=== PATIENT | female | born 1965 | race Caucasian/White ===

== ENCOUNTER 2016-03-30 06:14 | Outpatient (CLI) ==
[2015-11-01 19:09] VITALS: BMI 24.6
--- NOTE | 2016-03-30 10:02 | STRESSECHO ---
Date of Test: 03/30/16 Reason for Exam: SOB, TACHYCARDIA Ordering Physician: LUCILLE LEONE Current Medications: LAMICTAL, XANAX, PROTONIX, CARVEDILOL, WELLBUTRIN, AMBIEN, NALTREXONE Physical Findings: S1, S2, NO S3 Resting EKG: SINUS RHYTHM/ NO ACUTE CHANGES Target Heart Rate: 145/171 STAGE MPH/GRADE HEART RATE BPM BLOOD PRESSURE mmhg RHYTHM S-T SEGMENT +/- UP DOWN SYMPTOMS,COMMENTS At Rest 75 112/60 SR X NONE 1 1.7/10% 122 130/62 SR X NONE 2 2.5/12% 3 3.4/14% 4 4.2/16% 5 5.0/18% Immediately after 140 130/60 SR X SHORT OF BREATH Durations of Exercise: 4:44 Maximum Heart Rate Reached: 140 Reason for Termination: SHORT OF BREATH 3 MIN POST EXERCISE: HR-84, BP 116/58 MMHG, SINUS RHYTHM, +/-, NO SYMPTOMS INTERPRETATION: 98% OXYGEN SATURATION WITH EXERCISE ON ROOM AIR 1. NO EVIDENCE OF ISCHEMIA BY ST-T WAVE 2. NO CHEST PAIN OR CHEST DISCOMFORT 3. BLOOD PRESSURE RESPONSE: NORMAL 4. NO ARRHYTHMIAS NORMAL LEFT VENTRICULAR CONTRACTILITY--RESTING AND POST EXERCISE MTDD
--- NOTE | 2016-03-30 10:19 | ECHOSTRESS ---
Date of Exam: 03/30/16 Ordering Physician:LUCILLE LEONE Reason for Echo: SOB, TACHYCARDIA, STRESS TEST--NO ISCHEMIA M-Mode Normal Adult Results LV Dimensions Normal Adult Results AoV Opening excursions >1.6 LVEDD-base- 3.5-5.8 Ao root dimensions 2.0-3.7 LVESD-base- 3.1-4.6 L. Atrium dimensions 1.9-3.8 Post. Wall thickness 0.8-1.1 IV septum (thickness) 0.7-1.2 Post. Wall excursion 0.72-1.3 Septal motion Systolic motion R. Ventricular cavity 1.5-2.0 LVEF 60% Paradoxical septal wall motion 2-D: NORMAL LEFT VENTRICULAR CONTRACTILITY--RESTING AND POST EXERCISE M-MODE: MV: AV: TV: PV: CHAMBER SIZE: WALL MOTION: NORMAL LEFT VENTRICULAR CONTRACTILITY--RESTING AND POST EXERCISE PERICARDIUM: INTERPRETATION: 1. NORMAL LEFT VENTRICULAR CONTRACTILITY--RESTING AND POST EXERCISE MTDD
== END 2016-03-30 06:15 | disposition home or self-care (01) ==
LOC: CAR 06:14
PROVIDERS: ATTEND Family Medicine
DX: R00.0 Tachycardia, unspecified (principal); R06.02 Shortness of breath

== ENCOUNTER 2016-08-28 16:28 | Emergency (ER) ==
[2016-08-28 16:32] VITALS: BP 00/00; TEMP 98.4; BMI 26.2
[2016-08-28 17:07] LABS: BASOPHILS # (AUTO) 0.1 K/uL (0-0.2); EOSINOPHILS # (AUTO) 0.2 K/ul (0.0-0.7); HEMATOCRIT 37.7 % (37.0-47.0); HEMOGLOBIN 12.9 g/dl (12.0-16.0); IMMATURE GRANULOCYTE % (AUTO) 0.2 % (0.0-5.0); LYMPHOCYTES # (AUTO) 2.3 K/uL (0.60-3.4); LYMPHOCYTES % (AUTO) 47.6 (10.0-50.0); MEAN CORPUSCULAR HEMOGLOBIN 29.9 pg (27.0-31.0); MEAN CORPUSCULAR HGB CONC 34.2 (31.8-35.4); MEAN CORPUSCULAR VOLUME 87.3 fl (81.0-99.0); MONOCYTES # (AUTO) 0.3 K/uL (0.4-2.0); MONOCYTES % (AUTO) 6.7 (0-10); NEUTROPHILS % (AUTO) 40.5; PLATELET COUNT 283 10^3/uL (140-440); RED BLOOD COUNT 4.32 10^6/ul (4.20-5.40); WHITE BLOOD COUNT 4.81 K/ul (4.6-10.2)
[2016-08-28 17:24] LABS: ALBUMIN 3.8 g/dL (3.4-5.0); ALBUMIN/GLOBULIN RATIO 1.12; ANION GAP 14.8; BILIRUBIN,TOTAL 0.33 mg/dL (0.00-1.20); BUN/CREATININE RATIO 17.5; CALCIUM 9.3 mg/dL (8.2-10.2); CREATININE 0.8 mg/dL (0.60-1.30); POTASSIUM 3.8 mmol/L (3.5-5.10); TOTAL PROTEIN 7.2 g/dL (6.4-8.2)
--- NOTE | 2016-08-28 17:30 | CT ---
EXAM: CT chest without contrast HISTORY: Productive cough COMPARISON: CT abdomen pelvis 04/20/2012 TECHNIQUE: CT chest performed without intravenous contrast. Coronal and sagittal reformatted image s obtained. FINDINGS: Thyroid and thoracic inlet appear normal. Heart normal in size. No pericardial effusion . Aorta normal in caliber. Evaluation for lymphadenopathy limited without contrast. No lymphadeno kenn identified. Esophagus unremarkable. There is redemonstration of a left renal mass measuring 6.0 x 5.1 cm and 16 HU, mildly increased in size from 2013. No acute abnormalities of the bones. C entral airway patent. No pneumothorax. Trace left pleural effusion. Trace bilateral pleural effus ions. Mild lower airway thickening. No focal airspace consolidation. Minimal subsegmental atelect asis in the right middle lobe. IMPRESSION: 1. Mild lower airway thickening suggesting mild infectious/inflammatory bronchiolitis. No airspace consolidation. Mild subsegmental atelectasis right middle lobe 2. Trace bilateral pleural effusions. 3. Left adrenal mass measuring 6.0 cm, mildly increased from 2013, appearing cystic on MRI 11/10/19 11
[2016-08-28] MEDS ORDERED: DUONEB NEB STA (17:33)
[2016-08-28] MEDS ORDERED: DECADRON 4 MG/ML SDV IM STA (17:35)
[2016-08-28] MEDS ORDERED: DECADRON 4 MG/ML SDV ONE (17:38)
--- NOTE | 2016-08-28 17:47 | CT ---
EXAM: CT of the sinuses without contrast. HISTORY: Sinus congestion and pain. PROCEDURE: Contiguous axial CT images of the paranasal sinuses without contrast with coronal and sa gittal reformats. FINDINGS: There are bilateral antrectomy defects. There is a 1.4 cm mucous retention cyst in the ri ght maxillary sinus. There is trace mucosal thickening in the bilateral maxillary sinuses. The fron micky sinuses, ethmoid air cells and sphenoid sinus are well-aerated and normal in appearance. There is marked deviation of the nasal septum to the left. The lens in the left orbit is not visualized wh ich is stable compared with CT of 11/01/2015. Impression: Bilateral maxillary sinusitis as described. Operative changes as described.
--- NOTE | 2016-08-28 18:12 | ED.PDOC ---
General ED Provider: Dr. VANGIE KEARNS-ER Chief Complaint: Cough Stated Complaint: Mariah coughing up stuff Time Seen by Physician: 18:10 Mode of Arrival: Walk-In Information Source: Patient Exam Limitations: No limitations Primary Care Provider: LUCILLE KRISHNAN Nursing and Triage Documentation Reviewed and Agree: Yes Respiratory Complaint Exam - Respiratory Complaint/Exam Onset/Duration: 5 days Symptoms Are: Still present Timing: Intermittent Initial Severity: Mild Current Severity: Mild Location: Chest Character: Reports: Productive cough Aggravating: Reports: URI Alleviating: Reports: None Associated Signs and Symptoms: Reports: URI. Denies: Rapid breathing, Dyspnea, Fever, Chills, Chest pain, Pleuritic chest pain, Wheezing, Hemoptysis, Dizziness , Calf pain, Calf swelling, Edema, Nasal congestion, Hoarseness, Sinus discomfort, Vomiting, Sore throat, Weight loss, Decreased oral intake, Increased thirst, Increased appetite, Increased urination Related History: Reports: Similar episode History of Healthcare-Acquired Pneumonia: No Related Surgical History: Reports: None Pulmonary Embolism Risk Factors: None Home Oxygen Use: No Recent Stress Test: No Recent Echo/LV Function: No Current Antibiotic Use: No Current Asthma Medication Use: No Respiratory Distress: None Inadequate Respiratory Effort: No Dysphagia Present: No Stridor Present: No JVD Present: No Accessory Muscle Use: No Retractions: Not Present Diminished Breath Sounds: No Sinus Tenderness: None Grunting Respirations: No Kussmaul Respirations: No Differential Diagnoses: Pneumonia, Bronchitis, Sinusitis Review of Systems - Review Of Systems Constitutional: Reports: No symptoms Eyes: Reports: No symptoms Ears, Nose, Mouth, Throat: Reports: No symptoms Respiratory: Reports: Cough, Wheezing Cardiac: Reports: No symptoms GI: Reports: No symptoms : Reports: No symptoms Musculoskeletal: Reports: No symptoms Skin: Reports: No symptoms Neurological: Reports: No symptoms Endocrine: Reports: Intolerance to heat Hematologic/Lymphatic: Reports: No symptoms All Other Systems: Reviewed and Negative Past Medical History - Past Medical History Previously Healthy: Yes Endocrine: Reports: None Cardiovascular: Reports: None Respiratory: Reports: None Hematological: Reports: None Gastrointestinal: Reports: None Genitourinary: Reports: None Neuro/Psych: Reports: Other (insomina ) Musculoskeletal: Reports: Other (fibromyalgia) Cancer: Reports: None Last Menstrual Period: none - Surgical History General Surgical History: Reports: Hysterectomy, Cholecystectomy, Other ( CATARACT SURGERY.) - Family History Family History: Reports: None - Social History Smoking Status: Never smoker Hx Substance Use: No Alcohol Screening: None Lives: With family Physical Exam - Physical Exam Appearance: Well-appearing, No pain distress, Well-nourished Eyes: GASTON, EOMI, Conjunctiva clear ENT: Ears normal, Nose normal, Oropharynx normal Neck: Supple Respiratory: Rhonchi Cardiovascular: RRR GI/: Soft, Nontender, No masses, Bowel sounds normal, No Organomegaly Musculoskeletal: Normal strength, ROM intact, No edema, No calf tenderness Skin: Warm, Dry, Normal color Neurological: Sensation intact, Motor intact, Reflexes intact, Cranial nerves intact, Alert, Oriented Psychiatric: Affect appropriate, Mood appropriate Interpretation - Radiology Interpretation Radiology Interpretation By: Radiologist Radiology Results: Positive Exam Interpreted: CT Scan Re-Evaluation - Re-Evaluation Time of Re-Evaluation: 18:13 Status: Improved Vital Signs Stable: Yes Pain Level: 0 Appearance: NAD Lungs: Clear Skin: Warm and Dry Neuro: Alert and Oriented X3 CV: RRR Critical Care Note - Critical Care Note Total Time (mins): 0 Course - Course Hematology/Chemistry: 08/28/16 16:55 08/28/16 16:55 Orders, Labs, Meds: Lab Review 08/28/16 16:55 WBC 4.81 RBC 4.32 Hgb 12.9 Hct 37.7 MCV 87.3 MCH 29.9 MCHC 34.2 RDW Coeff of Lianne 13.9 Plt Count 283 Immature Gran % (Auto) 0.2 Neut % (Auto) 40.5 Lymph % (Auto) 47.6 Beadle % (Auto) 6.7 Eos % (Auto) 4.0 Baso % (Auto) 1.0 Immature Gran # (Auto) 0.0 Neut # 2.0 Lymph # 2.3 Beadle # 0.3 L Eos # 0.2 Baso # 0.1 Sodium 141 Potassium 3.8 Chloride 106 Carbon Dioxide 24 Anion Gap 14.8 BUN 14 Creatinine 0.80 Estimated GFR (MDRD) 76.00 BUN/Creatinine Ratio 17.50 Glucose 98 Calcium 9.3 Total Bilirubin 0.33 AST 61 H ALT 78 Alkaline Phosphatase 110 H Total Protein 7.2 Albumin 3.8 Globulin 3.4 Albumin/Globulin Ratio 1.12 Orders Category Date Time Status NEBULIZER TREATMENT Stat CARDIO 08/28/16 17:33 Completed BLOOD CULTURE Stat LAB 08/28/16 16:55 Received CBC W/ AUTO DIFF Stat LAB 08/28/16 16:55 Completed COMPREHENSIVE METABOLIC PANEL Stat LAB 08/28/16 16:55 Completed MOLECULAR GROUP A STREP Stat LAB 08/28/16 16:40 Results STREP SCREEN Stat LAB 08/28/16 16:40 Results Dexamethasone 4 mg/ml Inj [Decadron 4 mg/ml Sdv] MEDS 08/28/16 17:38 Discontinued 4 mg .ROUTE .STK-MED ONE Dexamethasone 4 mg/ml Inj [Decadron 4 mg/ml Sdv] MEDS 08/28/16 17:35 Discontinued 4 mg IM ONCE STA Ipratropium/Albuterol Neb [Duoneb] MEDS 08/28/16 17:33 Discontinued 1 vial NEB ONCE STA CT CHEST W/O CONTRAST Stat RADS 08/28/16 16:[address] SINUSES W/O CONTRAST Stat RADS 08/28/16 16:39 Completed Medications Discontinued Medications Generic Name Dose Route Start Last Admin Trade Name Iliana PRN Reason Stop Dose Admin Albuterol/Ipratropium 1 vial 08/28/16 17:33 08/28/16 17:43 Duoneb NEB 08/28/16 17:34 1 vial ONCE STA Administration Dexamethasone Sodium Phosphate 4 mg 08/28/16 17:35 08/28/16 17:41 Decadron 4 Mg/Ml Sdv IM 08/28/16 17:36 4 mg ONCE STA Administration Vital Signs: Temp Pulse Resp BP Pulse Ox 08/28/16 16:28 98.4 F 94 H 18 00/00 L 96 Departure - Departure Time of Disposition: 18:13 Disposition: HOME SELF-CARE Discharge Problem: Bronchitis, Mass of left adrenal gland Instructions: Acute Bronchitis (ED) Condition: Good Pt referred to PMD for follow-up: Yes Additional Instructions: continue antbx--start prednisone 20mg taper tomorrow---use the albuterol inhaler 2 puffs qid you hve a home--f/i with dr krishnan this week concerning the adrenal mass Allergies/Adverse Reactions: Allergies Sulfa (Sulfonamide Antibiotics) Adverse Reaction (Verified 08/28/16 16:33) Home Medications: Ambulatory Orders Lamotrigine [Lamictal] 200 mg PO DAILY 05/31/15 Pantoprazole Sodium [Protonix] 40 mg PO DAILY 05/31/15 Trazodone HCl 150 mg PO BEDTIME 11/01/15 Alprazolam [Alprazolam ER] 2 mg PO BID 08/28/16 Carvedilol [Coreg] 12.5 mg PO BID 08/28/16 Cetirizine HCl [Zyrtec] 10 mg PO DAILY 08/28/16 Cyclobenzaprine HCl [Amrix] 15 mg PO DAILY 08/28/16 Escitalopram Oxalate [Lexapro] 10 mg PO DAILY 08/28/16 Transfer Form Completed: No Disposition Discussed With: Patient, Family
== END 2016-08-28 18:20 | disposition home or self-care (01) ==
LOC: ED 16:28
DX: J20.9 Acute bronchitis, unspecified (principal); E27.9 Disorder of adrenal gland, unspecified; Z79.899 Other long term (current) drug therapy
CPT/HCPCS: 36415; 80053; 85025; 87040; 87651; 87880; 94640; 96372; 99283

== ENCOUNTER 2016-09-09 07:10 | Outpatient (CLI) ==
--- NOTE | 2016-09-09 13:06 | MRI ---
EXAM: MRI abdomen without and with contrast HISTORY: Left adrenal mass, follow-up TECHNIQUE: Multiplanar, multisequence using an adrenal protocol without and following the administr ation of intravenous Omniscan, 15 mL. COMPARISON: Previous MRI from 11/09/2010 FINDINGS: The heart is incompletely imaged. Trace pleural effusions layer dependently. No pericar dial effusion is appreciated. There is no evidence of hepatic steatosis. No hepatic lesions are evident. The gallbladder is abse nt without biliary dilatation. The spleen has normal size and signal. The right adrenal gland is normal. There is a large cyst abutting the superior pole of the left kid jason and extending cephalad to the region of the left adrenal gland. This is currently 5.5 x 5.0 x 6 .0 cm. No enhancement appreciated. The left adrenal limbs are splayed by the lesion. This has incre ased in size since the previous examination when it was 4 x 4 x 4.1 cm.. The pancreas has normal si gnal and enhancement. There is no evidence of acute or chronic pancreatitis. The right kidney is n ormal. No suspicious renal lesions are evident. The visible intestines have normal signal caliber without evidence of obstruction or acute inflammation. No lymphadenopathy or ascites are detected. The aorta has normal caliber and flow signal. IMPRESSION: 1. Simple cyst in the left perinephric space. This could arise from the superior pole of the left kidney or the left adrenal gland. The former is favored. This has slightly increased in size since the previous examination. 2. Previous cholecystectomy without old dilatation. 3. Trace pleural effusions. 4. Otherwise normal.
== END 2016-09-09 07:11 | disposition home or self-care (01) ==
LOC: RAD 07:10
PROVIDERS: ATTEND Family Medicine
DX: R93.8 Abnormal findings on diagnostic imaging of other specified body structures (principal); E27.9 Disorder of adrenal gland, unspecified

== ENCOUNTER 2017-05-22 11:00 | Outpatient (RCR) ==
--- NOTE | 2017-05-15 11:30 | RS.OPPTEV2 ---
Date of Note: 05/11/17 Visit #: 1 Date of Evaluation: 05/11/17 Payer Source: Medicaid Date of Onset/Injury/Change in Status: 11/29/16 Surgery Performed?: No Treatment Diagnosis: lumbar pain with radiculopathy History of Condition/Mechanism of Injury:: pt suffered a fall at work (school) landing on low back causing pain. Prior Level of Function.....Patient was independent with: ADL's, Self Care, Ambulation/Mobility Functional Limitations: Sleep, Self Care, Reaching, Pushing, Pulling, Lifting, Carrying, Sitting, Standing, Bending, Squatting, Ambulation Current Subjective/complaints:: pt states that she had back surgery 2016 and was doing well and pt suffered a fall on 11/29/16 landing on lumbar spine in area of surgery and has had severe pain ever since. 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 pt states she had injection per Dr. Alves 05/10/17 Treatment Side (optional): N/A *Precautions: no bending lifting, twisting Medical History Medical History: Arthritis Medical History Comments:: bipolar disorder(per patient) Surgical History: Cholecystectomy, Hysterectomy Surgical History Comments:: lumpectomy, cataract, cyst removed from wrist several times. Smoking Status: Former smoker Diagnostic Testing/Imaging:: xray and MRI at [facility] Hx Home Medications: lithium, carvedilol, pantoprazole, escitalopram, alprazolam , lamotrigine, trazadone, cyclobenzaprine Patient's Goals: decrease pain Pain Assessment - Pain Description Pain Location: lower lumbar Pain Description: Tightness, Aching Current Pain Intensity: 6 Worst Pain Intensity: 10 Functional Outcome Measure Oswestry LBP: 40 (80%) - G Codes & Severity Modifier G Codes & Modifier: n/a Source of G Code score: n/a Observation - Observation Inspection: pt with significantly tight hamstrings and piriformis BLE Posture: Forward Head, Rounded Shoulders, Increased Thoracic Kyphosis, Decreased Lumbar Lordosis Handedness: Right Gait - Gait Pattern General Gait Pattern Observation: No Deviations/Normal Gait Comments: pt with increased lat sway with gait, pt states she is a little "out of it " from meds General Range of Motion: BUE WFL's. BLE WFL's with pain Muscle Strength: BUE grossly 4+/5. BLE hip flex 3+/5, knee flex/ext 4/5, ankle dF/PF 4+/5 pt c/o pain with MMT - ROM Comments: lumbar flex hands only to proximal thighs, side bending significantly limited R worse than L, very limited extension. - Strength Trunk Flexion: 3- Fair- Trunk Lateral Flexion: 3- Fair- - Special Tests SLR Test: Positive Left, Positive Right Palpation Palpation Findings: Tenderness, Trigger Point, Muscle Guarding Comments:: tenderness in lower lumar parspinal, PSIS. trigger points over PSIS, as well as lower lumbar. Sensation - Sensation Right Upper Extremity: Intact/Normal Left Upper Extremity: Intact/Normal Right Lower Extremity: Impaired Left Lower Extremity: Intact/Normal Comments: some paresthesia noted in RLE. Balance - Sitting Balance Static Sitting Balance: Good Dynamic Sitting Balance: Good - Standing Balance Static Standing Balance: Good Dynamic Standing Balance: Fair - Comments Balance Assessment Comments: pt with increased lat sway during gait. pt loses balance with sternal nudges. - Heat/Cryotherapy Treatment: Hot Pack Comments:: lumbar spine Interventions - Exercise/Activities/Manual Therapy Exercises/Activities: pt received gentle hamstring stretches, piriformis stretching, isometric hip add, resisted hip flex Manual Therapy: n/a HOME EXERCISE PROGRAM: pt given written HEP including hamstring stretching, trunk rotation as well as isometric hip add, resisted hip flex. - Charges Timed Code Treatment Minutes: 48 Total Treatment Time: 60 Procedures billed for this date of service:: eval low, hot pack EVALUATION COMPLEXITY LEVEL EVALUATION COMPLEXITY LEVEL: HISTORY: Low (fibromyalgia, lumbar pain), EXAM OF BODY SYSTEMS: Medium (pain, strength, balance, posture), CLINICAL PRESENTATION: Low (stable), CLINICAL DECISION MAKING: Low Assessment Assessment: pt presents with lumbar pain with radiculopathy into RLE, pt with significantly tight hamstrings, piriformis muscles with muscle guarding, decreased strength limiting functional mobility Patient Education: Home Exercise Program, Education of Plan of Care Rehab Potential: Good Short Term Goals Goal #1: pt rate pain <6/10 with activity Goal to be met by: 06/01/17 Goal #2: Decreased B hamstring tightness by 50 % Goal to be met by: 06/01/17 Goal #3: pt amb with decreased antalgic gait pattern. Goal to be met by: 06/01/17 Goal #4: Increase lumbar flex hands to patella, side bending to joint line Goal to be met by: 06/01/17 Senior Care Goals Goal #1: pt rate pain <4/10 with activity Goal to be met by: 06/22/17 Goal #2: pt with no reports of radiating pain into RLE Goal to be met by: 06/22/17 Goal #3: pt report increased ability to perform household duties with decreased pain Goal to be met by: 06/22/17 Goal #4: pt independent with HEP Goal to be met by: 06/22/17 Plan - Treatment to be Provided Procedures: Therapeutic Exercises, Therapeutic Activity, Manual Therapy, Massage , Patient Education Modalities: Electrical Stimulation, Ultrasound/Phonophoresis, Cryotherapy, Hot Packs - Treatment Plan Frequency: 2 X week Duration: 6 weeks ORDER # VISITS AND/OR THROUGH DATE: 06/22/17 - Treatment Code (1) Lumbar back pain with radiculopathy affecting right lower extremity Code(s): M54.17 - RADICULOPATHY, LUMBOSACRAL REGION (2) Muscle tightness Code(s): M62.89 - OTHER SPECIFIED DISORDERS OF MUSCLE (3) Muscle weakness Code(s): M62.81 - MUSCLE WEAKNESS (GENERALIZED)
--- NOTE | 2017-05-15 12:18 | RS.OPPTDN ---
Subjective Date of Note: 05/15/17 Visit #: 2 Date of Evaluation: 05/11/17 Payer Source: Medicaid Treatment Diagnosis: lumbar pain with radiculopathy Current Subjective/complaints:: Patient reports pain in the lowback that limits all functional activities. She reports she is willing to progress with exercise in the department to reduce pain and increase her mobility level. *Precautions: no bending lifting, twisting Pain Assessment - Pain Description Pain Location: Lowback Current Pain Intensity: 5/10 following treatment - Treatment Modality: Electrical Stim Unattended Parameters/Method Applied: [id number] HVGC to 155-160p.v. with 4 large pads cross current to the bilateral lumbar parspinals with HP prior to EX. Patient Position: Supine - Heat/Cryotherapy Treatment: Hot Pack (with Estim ) Interventions - Exercise/Activities/Manual Therapy Exercises/Activities: Gentle assisted hamstring stretches, SKTC, and limited LTR. No new additional to HEP today. Total minutes of Exercise: 14mins Manual Therapy: n/a HOME EXERCISE PROGRAM: pt given written HEP including hamstring stretching, trunk rotation as well as isometric hip add, resisted hip flex. - Charges Timed Code Treatment Minutes: 14mins Total Treatment Time: 35mins Procedures billed for this date of service:: HP, Estim unatteded, EX Assessment: Patient with fair tolerance of gentle exercise today. Will progress slowly. Patient Education: Home Exercise Program Patient demonstrates compliance with HEP?: Yes Short Term Goals Goal #1: pt rate pain <6/10 with activity Goal to be met by: 06/01/17 Goal #2: Decreased B hamstring tightness by 50 % Goal to be met by: 06/01/17 Goal #3: pt amb with decreased antalgic gait pattern. Goal to be met by: 06/01/17 Goal #4: Increase lumbar flex hands to patella, side bending to joint line Goal to be met by: 06/01/17 Shop Tech Goals Goal #1: pt rate pain <4/10 with activity Goal to be met by: 06/22/17 Goal #2: pt with no reports of radiating pain into RLE Goal to be met by: 06/22/17 Goal #3: pt report increased ability to perform household duties with decreased pain Goal to be met by: 06/22/17 Goal #4: pt independent with HEP Goal to be met by: 06/22/17 Plan PLAN OF CARE EXPIRES ON:: 06/22/17 ORDER # VISITS AND/OR THROUGH DATE: 06/22/17 PLAN: Continue modalities and gently progress exercise to reduce pain and increase functional mobility.
--- NOTE | 2017-05-18 16:47 | RS.CXNS ---
Date of scheduled appointment: 05/18/17 Type: Cancel
--- NOTE | 2017-05-22 12:13 | RS.OPPTDN ---
Subjective Date of Note: 05/22/17 Visit #: 3 Date of Evaluation: 05/11/17 Payer Source: Medicaid Treatment Diagnosis: lumbar pain with radiculopathy Current Subjective/complaints:: Patient reports her pain and mobility are better at present as she has taken flexeril. Reports she is working on basic HEP. *Precautions: no bending lifting, twisting Pain Assessment - Pain Description Pain Location: Lowback Pain Description: 07/06 - Treatment Modality: Electrical Stim Unattended Parameters/Method Applied: [id number] HVGC to 95p.v. with 4 large pads to the bilateral lumbar paraspinals crossed current with HP. Patient Position: Supine - Heat/Cryotherapy Treatment: Hot Pack ([id number] with Estim) Interventions - Exercise/Activities/Manual Therapy Exercises/Activities: Gentle assisted hamstring stretches, SKTC, and limited LTR. Began isometric hip add and isometric ankle inversion with hip IR. Total minutes of Exercise: 15mins Manual Therapy: n/a HOME EXERCISE PROGRAM: pt given written HEP including hamstring stretching, trunk rotation as well as isometric hip add, resisted hip flex. Isometric hip add and isometric ankle inversion. - Objective Findings Observations,measurements,etc.: Increased hamstring length with stretching. - Charges Timed Code Treatment Minutes: 15mins Total Treatment Time: 40mins Procedures billed for this date of service:: HP, Estim unattended, EX Assessment: Patient able to tolerate exercise better today but she reports taking Flexiril. Patient Education: Body/Joint mechanics, Home Exercise Program, Activity Modification Patient demonstrates compliance with HEP?: Yes Short Term Goals Goal #1: pt rate pain <6/10 with activity Goal to be met by: 06/01/17 Progress towards Goal:: Progressing Goal #2: Decreased B hamstring tightness by 50 % Goal to be met by: 06/01/17 Progress towards Goal:: Progressing Goal #3: pt amb with decreased antalgic gait pattern. Goal to be met by: 06/01/17 Goal #4: Increase lumbar flex hands to patella, side bending to joint line Goal to be met by: 06/01/17 Escalator Operator Goals Goal #1: pt rate pain <4/10 with activity Goal to be met by: 06/22/17 Goal #2: pt with no reports of radiating pain into RLE Goal to be met by: 06/22/17 Goal #3: pt report increased ability to perform household duties with decreased pain Goal to be met by: 06/22/17 Goal #4: pt independent with HEP Goal to be met by: 06/22/17 Plan PLAN OF CARE EXPIRES ON:: 06/22/17 ORDER # VISITS AND/OR THROUGH DATE: 06/22/17 PLAN: Continue modalities and progress exercise to increase functional mobility and ambulation.
== END 2017-05-27 ==
DX: Z98.890 Other specified postprocedural states (principal); M54.16 Radiculopathy, lumbar region

== ENCOUNTER 2017-08-21 10:39 | Outpatient (RCR) ==
--- NOTE | 2017-08-21 14:41 | RS.OPPTEV2 ---
Date of Note: 08/21/17 Visit #: 1 Date of Evaluation: 08/21/17 Payer Source: Medicaid Date of Onset/Injury/Change in Status: 11/29/16 Surgery Performed?: No Treatment Diagnosis: lumbar pain with radiculopathy History of Condition/Mechanism of Injury:: Injury occurred after a fall at work 11/2016. pt is a teacher. Prior Level of Function.....Patient was independent with: ADL's, Self Care, Ambulation/Mobility Level of Function: pt states she returned to work in 05/2017. Functional Limitations: Sleep, Self Care, Reaching, Pushing, Pulling, Lifting, Carrying, Sitting, Standing, Bending, Squatting, Ambulation Current Subjective/complaints:: pt states she is trying to stay active and trying to ride bicycle a little in the neighborhood. She states she is also using self propelled mower for approx 15 mins at a time. pt reports that she still sleeps downstairs because she is afraid to use the stairs due to fear of falling. Treatment Side (optional): N/A *Precautions: limit bending lifting, twisting Medical History Medical History: Hypertension, Arthritis Medical History Comments:: bipolar disorder(per patient) Surgical History: Lumbar Spine, Cholecystectomy, Hysterectomy Surgical History Comments:: lumpectomy, cataract, cyst removed from wrist several times. Smoking Status: Never smoker Diagnostic Testing/Imaging:: no recent tests Hx Home Medications: lithium, carvedilol, pantoprazole, escitalopram, alprazolam , lamotrigine, trazadone, cyclobenzaprine, topamax Patient's Goals: decrease pain Pain Assessment - Pain Description Pain Location: low back pain radiating into R hip and into R thigh. Pain Description: Chronic Current Pain Intensity: 5/10 Worst Pain Intensity: 10/10 Functional Outcome Measure LE Functional Scale: 20 (75%) - G Codes & Severity Modifier G Codes & Modifier: n/a Source of G Code score: n/a Observation - Observation Posture: Forward Head, Rounded Shoulders, Increased Thoracic Kyphosis, Decreased Lumbar Lordosis Handedness: Right Gait - Gait Pattern General Gait Pattern Observation: No Deviations/Normal Gait Comments: pt amb without AD into dept with no LOB. General Range of Motion: BUE WFL's. BLE ROM WFL's with pain Muscle Strength: BUE atleast 4/5. R hip flex 4-/5, knee flex/ext 4-/5, ankle DF /PF 4/5. LLE hip flex 4+/5, knee flex/ext 4+/5, ankle df/PF 5/5 - ROM Lumbar Flexion: Hand reach to Mid-Shins Sidebending to Left: Reach to Lateral Joint Line Sidebending to Right: Reach to Mid-thigh Lumbar Spine ROM Limitations: Soft Tissue Tightness, Muscle Weakness, Pain - Strength Trunk Extension: 3- Fair- Trunk Flexion: 3 Fair Trunk Lateral Flexion: 3- Fair- Trunk Rotation: 3- Fair- - Special Tests SLR Test: Positive Left, Positive Right Seated Dural Stretch Test: Positive Left, Positive Right Palpation Palpation Findings: Tenderness, Trigger Point (muscle guarding, tenderness and trigger points noted on lumbar spine R worse than L ), Muscle Guarding Sensation - Sensation Right Upper Extremity: Intact/Normal Left Upper Extremity: Intact/Normal Right Lower Extremity: Intact/Normal Left Lower Extremity: Intact/Normal Balance - Sitting Balance Static Sitting Balance: Good Dynamic Sitting Balance: Good - Standing Balance Static Standing Balance: Fair Dynamic Standing Balance: Fair - Comments Balance Assessment Comments: pt reports balance difficulties at home, not imbalance noted during eval. No LOB with amb to/from dept. - Treatment Modality: Electrical Stim Unattended Parameters/Method Applied: 12ma x 20 mins Treatment Area: lumbar spine Patient Position: Left Sidelying - Heat/Cryotherapy Treatment: Hot Pack Comments:: lumbar spine Interventions - Exercise/Activities/Manual Therapy Exercises/Activities: pt instructed on pelvic tilts, isometric hip add, hamstring stretch, Manual Therapy: n/a HOME EXERCISE PROGRAM: pt given written HEP including : pelvic tilts, isometric hip add, hamstring stretch, - Charges Timed Code Treatment Minutes: 41 Total Treatment Time: 59 Procedures billed for this date of service:: eval med, estim unattended, hot pack EVALUATION COMPLEXITY LEVEL EVALUATION COMPLEXITY LEVEL: HISTORY: Medium (HTN, OA, back pain), EXAM OF BODY SYSTEMS: Medium (pain, posture, strength, balance), CLINICAL PRESENTATION: Medium (evolving), CLINICAL DECISION MAKING: Medium Assessment Assessment: pt presents with low back pain from injury in 11/2016. pt with low back pain radiating into R hip and thigh. pt with muscle guarding and tenderness and trigger points in to BLE's. Patient Education: Home Exercise Program, Home Safety, Education of Plan of Care Rehab Potential: Good Short Term Goals Goal #1: pt rate pain <5/10 with activity Goal to be met by: 09/04/17 Goal #2: Decreased hamstring tightness R equal to L. Goal to be met by: 09/04/17 Goal #3: pt independent with intial HEP Goal to be met by: 09/04/17 Goal #4: Increase lumbar side bending L and R to joint line Goal to be met by: 09/04/17 Senior Care Goals Goal #1: pt rate pain <4/10 with activity Goal to be met by: 09/18/17 Goal #2: pt with no reports of radiating pain into RLE Goal to be met by: 09/18/17 Goal #3: pt report increased ability to perform household duties with decreased pain Goal to be met by: 09/18/17 Goal #4: pt with decreased hamstring tightness to WFL's Goal to be met by: 09/18/17 Plan - Treatment to be Provided Procedures: Therapeutic Exercises, Therapeutic Activity, Manual Therapy, Massage , Patient Education Modalities: Electrical Stimulation, Ultrasound/Phonophoresis, Cryotherapy, Hot Packs - Treatment Plan Frequency: 2 X week Duration: 4 weeks ORDER # VISITS AND/OR THROUGH DATE: 09/18/17 - Treatment Code (1) Lumbar back pain with radiculopathy affecting right lower extremity Code(s): M54.17 - RADICULOPATHY, LUMBOSACRAL REGION (2) Muscle tightness Code(s): M62.89 - OTHER SPECIFIED DISORDERS OF MUSCLE (3) Muscle weakness Code(s): M62.81 - MUSCLE WEAKNESS (GENERALIZED)
== END 2017-08-26 23:59 | disposition short-term general hospital (02) ==
DX: M54.16 Radiculopathy, lumbar region (principal); M62.89 Other specified disorders of muscle; M62.81 Muscle weakness (generalized)

== ENCOUNTER 2018-05-10 13:03 | Emergency (ER) | payer OTHER ==
[2018-05-10 13:12] VITALS: BP 121/75; TEMP 99.5; BMI 31.1
--- NOTE | 2018-05-10 14:45 | ED.PDOC ---
General ED Provider: Dr. 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 States has a sleep disorder-never gets REM sleep. Patient Has known hx of ischemic colitis. States she has noticed recently hermila bright red blood when passing a BM. Has mild lower abdominal cramping. Time Seen by Physician: 14:30 Mode of Arrival: Walk-In Information Source: Patient, Other (her mother) Primary Care Provider: LUCILLE HUYNH Referred to ED by: Clinic Nursing and Triage Documentation Reviewed and Agree: Yes Does patient meet sepsis criteria?: No System Inflammatory Response Syndrome: Not Applicable Sepsis Protocol: For patient's 13 years and over: Temp is 96.8 and below OR 101 and greater Pulse >90 BPM Resp >20/minute Acutely Altered Mental Status Are patient's symptoms suggestive of a new infection, such as: -Pneumonia -Skin, Soft Tissue -Endocarditis -UTI -Bone, Joint Infection -Implantable Device -Acute Abdominal Infection -Wound Infection -Meningitis -Blood Stream Catheter Infection -Unknown Neurological Complaint Exam - Altered Mental Status Complaint/Exam Current Mental Status: Confusion, Other (Excessive sleep-drowsy) Onset: Gradual Duration: several months Symptoms Are: Still present Timing: Constant Episodes Lasting: Hours Initial Severity: Moderate Current Severity: Moderate Eye Deviation Present: No Character: Reports: Lethargy Aggravating: Reports: None Alleviating: Reports: None Associated Signs and Symptoms: Reports: Dizziness, Weakness Related History: Reports: Similar episode Cardiac Risk Factors: Reports: None Related Surgical History: Reports: None Carotid Bruit Present: No Nystagmus Present: No Gag Reflex Present: Yes Meningeal Signs Positive: No Focal Weakness: Present: None Focal Sensory Loss: Present: None Gait: Normal [id number]: Normal Findings Romberg Test Positive: No Babinski Sign: Negative Right, Negative Left Heel to Toe Normal: Yes Signs of Injury: Present: Normal findings Differential Diagnoses: Metabolic Disorder, Medication reaction Review of Systems - Review Of Systems Constitutional: Reports: No symptoms Eyes: Reports: No symptoms Ears, Nose, Mouth, Throat: Reports: No symptoms Respiratory: Reports: No symptoms Cardiac: Reports: No symptoms GI: Reports: Abdomen distended, Rectal bleeding, Other (Cramping pain LLQ and across lower abdomen) : Reports: No symptoms Musculoskeletal: Reports: No symptoms Skin: Reports: No symptoms Neurological: Reports: No symptoms Endocrine: Reports: No symptoms Hematologic/Lymphatic: Reports: No symptoms All Other Systems: Reviewed and Negative Past Medical History - Past Medical History Previously Healthy: Yes Endocrine: Reports: None Cardiovascular: Reports: None Respiratory: Reports: None Hematological: Reports: None Gastrointestinal: Reports: None Genitourinary: Reports: None Neuro/Psych: Reports: Anxiety, Depression, Bipolar Disorder, Other (insomina ) Musculoskeletal: Reports: Other (fibromyalgia) Cancer: Reports: None Last Menstrual Period: na - Surgical History General Surgical History: Reports: Hysterectomy, Cholecystectomy, Other ( Cataract surgery) - Family History Family History: Reports: None - Social History Smoking Status: Never smoker Hx Substance Use: No Alcohol Screening: None 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 Lives: With family - Immunizations Tetanus Shot up to Date: No Physical Exam - Physical Exam Appearance: Ill-appearing, Obese Ill-appearing: Mild Pain Distress: None Eyes: GASTON, EOMI, Conjunctiva clear ENT: Ears normal, Nose normal, Oropharynx normal Neck: Supple Respiratory: Airway patent, Breath sounds clear, Breath sounds equal, Respirations nonlabored Cardiovascular: RRR, Pulses normal, No rub, No murmur GI/: Soft, No masses, Bowel sounds normal, No Organomegaly, Tender (Mid to lower abdomen/LLQ no guarding or rebound) Musculoskeletal: Normal strength, ROM intact, No edema, No calf tenderness Skin: Warm, Dry, Normal color Neurological: Sensation intact, Motor intact, Reflexes intact, Cranial nerves intact, Alert, Oriented Psychiatric: Affect appropriate, Mood appropriate Interpretation - Radiology Interpretation Radiology Interpretation By: Radiologist Exam Interpreted: CT Scan (Head no acute findings; abdomen-descending colitis) Critical Care Note - Critical Care Note Total Time (mins): 120 Course - Course Hematology/Chemistry: 05/10/18 14:55 05/10/18 14:55 Orders, Labs, Meds: Lab Review 05/10/18 05/10/18 05/10/18 14:55 14:55 15:00 WBC 7.01 RBC 4.22 Hgb 12.6 Hct 39.3 MCV 93.1 MCH 29.9 MCHC 32.1 RDW Coeff of Lianne 13.6 Plt Count 214 Immature Gran % (Auto) 0.3 Neut % (Auto) 54.3 Lymph % (Auto) 34.4 Catron % (Auto) 7.3 Eos % (Auto) 3.3 Baso % (Auto) 0.4 Immature Gran # (Auto) 0.0 Neut # (Auto) 3.8 Lymph # (Auto) 2.4 Catron # (Auto) 0.5 Eos # (Auto) 0.2 Baso # (Auto) 0.0 Sodium 143.0 Potassium 4.14 Chloride 109.6 H Carbon Dioxide 26.3 Anion Gap 11.24 BUN 11.6 Creatinine 0.71 Estimated GFR (MDRD) 87.00 BUN/Creatinine Ratio 16.33 Glucose 90.5 Calcium 8.94 Total Bilirubin 0.34 AST 27.4 ALT 25.0 Alkaline Phosphatase 74.8 Total Protein 7.14 Albumin 4.15 Globulin 2.99 Albumin/Globulin Ratio 1.38 Triglycerides 198.6 H Cholesterol 173.5 LDL Cholesterol, Calc 91 VLDL Cholesterol 40 H HDL Cholesterol 43.2 Cholesterol/HDL Ratio 4.0 L Urine Color Urine Clarity Urine pH Ur Specific [place] Urine Protein Urine Glucose (UA) Urine Ketones Urine Blood Urine Nitrite Urine Bilirubin Urine Urobilinogen Ur Leukocyte Esterase Urine Microscopic WBC Ur Squamous Epith Cells Stl Occult Blood (IFOB) Stool Occult Blood #2 Stool Occult Blood #3 Urine Opiates Screen Negative Ur Oxycodone Screen Negative Urine Methadone Screen Negative Ur Propoxyphene Screen Negative Ur Barbiturates Screen Negative U Tricyclic Antidepress Negative Ur Phencyclidine Scrn Negative Ur Amphetamine Screen Negative U Methamphetamines Scrn Negative U Benzodiazepines Scrn Positive Urine Cocaine Screen Negative U Cannabinoids Screen Negative 05/10/18 05/10/18 15:00 17:05 WBC RBC Hgb Hct MCV MCH MCHC RDW Coeff of Lianne Plt Count Immature Gran % (Auto) Neut % (Auto) Lymph % (Auto) Catron % (Auto) Eos % (Auto) Baso % (Auto) Immature Gran # (Auto) Neut # (Auto) Lymph # (Auto) Catron # (Auto) Eos # (Auto) Baso # (Auto) Sodium Potassium Chloride Carbon Dioxide Anion Gap BUN Creatinine Estimated GFR (MDRD) BUN/Creatinine Ratio Glucose Calcium Total Bilirubin AST ALT Alkaline Phosphatase Total Protein Albumin Globulin Albumin/Globulin Ratio Triglycerides Cholesterol LDL Cholesterol, Calc VLDL Cholesterol HDL Cholesterol Cholesterol/HDL Ratio Urine Color Yellow Urine Clarity Clear Urine pH 6.5 Ur Specific [place] <=1.005 Urine Protein Negative Urine Glucose (UA) Negative Urine Ketones Negative Urine Blood Negative Urine Nitrite Negative Urine Bilirubin Negative Urine Urobilinogen 0.2 Ur Leukocyte Esterase 1+ Urine Microscopic WBC 5-10 Ur Squamous Epith Cells 30-50 Stl Occult Blood (IFOB) Positive Stool Occult Blood #2 No specimen received Stool Occult Blood #3 No specimen received Urine Opiates Screen Ur Oxycodone Screen Urine Methadone Screen Ur Propoxyphene Screen Ur Barbiturates Screen U Tricyclic Antidepress Ur Phencyclidine Scrn Ur Amphetamine Screen U Methamphetamines Scrn U Benzodiazepines Scrn Urine Cocaine Screen U Cannabinoids Screen Orders Category Date Time Status CBC W/ AUTO DIFF Stat LAB 05/10/18 14:55 Completed CMP [COMPREHENSIVE METABOLIC PANEL] Stat LAB 05/10/18 14:55 Completed LIPID PANEL Stat LAB 05/10/18 14:55 Completed OCCULT BLOOD, STOOL Stat LAB 05/10/18 17:05 Completed UA [URINALYSIS C & S IF INDICATED] Stat LAB 05/10/18 15:00 Completed URINE CULTURE Stat LAB 05/10/18 15:00 Received URINE DRUG SCREEN (RAPID FOR ED) [DRUG SCREEN, URINE, LAB 05/10/18 15:00 Completed RAPID] Stat CT ABDOMEN/PELVIS WO CONTRAST Stat RADS 05/10/18 16:[address] HEAD W/O CONTRAST Stat RADS 05/10/18 14:54 Completed Vital Signs: Temp Pulse Resp BP Pulse Ox 05/10/18 13:07 99.5 F 87 20 121/75 95 Departure - Departure Time of Disposition: 18:00 Disposition: HOME SELF-CARE Discharge Problem: Colitis, Hypersomnia, Polypharmacy Instructions: Sleep Apnea (DC), Colitis (ED) Condition: Fair Pt referred to PMD for follow-up: Yes IPMP verified?: No Additional Instructions: Suggest adjusting meds as follows in an attempt to reduce hypersomnia Reduce Topamax to 12.5 mg twice daily and after 7 days discontinues Reduce Xanax to 1/2 tab at Bedtime and 1 in AM. Further adjustments per psychiatrist Suggest Sleep Study-Consult PCP Begin antibiotics for colitis Diet as tolerated Monitor [place] Levels Prescriptions: Doxycycline Monohydrate [Monodox] 100 mg PO BID #20 capsule Metronidazole [Flagyl] 500 mg PO BID 7 Days #14 tablet Allergies/Adverse Reactions: Allergies Sulfa (Sulfonamide Antibiotics) Adverse Reaction (Verified 05/10/18 13:24) Home Medications: Ambulatory Orders Lamotrigine [Lamictal] 300 mg PO DAILY 05/31/15 Trazodone HCl 150 mg PO BEDTIME 11/01/15 Alprazolam [Alprazolam ER] 1 mg PO DAILY 08/28/16 Carvedilol [Coreg] 12.5 mg PO BID 08/28/16 Cyclobenzaprine HCl [Amrix] 10 mg PO DAILY 08/28/16 Escitalopram Oxalate [Lexapro] 15 mg PO DAILY 08/28/16 Doxycycline Monohydrate [Monodox] 100 mg PO BID #20 capsule 05/10/18 [place] Carbonate 150 mg PO QID 05/10/18 Metronidazole [Flagyl] 500 mg PO BID 7 Days #14 tablet 05/10/18 Topiramate [Topamax] 25 mg PO BID 05/10/18 GI Complaint Exam - Rectal Complaint/Exam Patient Complains of: Reports: Rectal bleeding Onset/Duration: Today and previously occasional Symptoms Are: Still present Timing: Intermittent Episodes Lasting: Minutes Initial Severity: Mild Current Severity: None Location: Reports: Rectal, No pain Character: Denies: Sharp, Dull, Burning, Itching, Pressure Aggravating: Reports: None (Unknown) Alleviating: Reports: None (Spontaneous -no treatment) Associated Signs and Symptoms: Reports: Rectal bleeding Related History: Reports: Similar episode Related Surgical History: Reports: None Rectal Exam: Present: Normal findings, Heme positive (noted liq brownish red fluid on exam glove.) Differential Diagnoses: Hemorrhoids, Rectal Fissure, Rectal Polyps, Other Additional Information: Patient very somolent while in dept. Reviewed meds with patient and discussed poss causal relationship to her hypersomnia plus suspicion of obstructive sleep apnea State Dr Huynh has been attempting to schedule a sleep study
--- NOTE | 2018-05-10 15:33 | CT ---
EXAM: CT of the head without contrast History: Drowsiness, headache and dizziness. Comparison: Head CT 11/01/2015 Technique: Multiplanar CT images through the head were obtained without the administration of IV con trast Findings: The visualized paranasal sinuses and mastoid air cells are clear in general. No acute brett varial abnormalities. Intracranially there is stable frontal atrophy. No dominant mass or midline shift. No hydrocephalou s. No acute intracranial hemorrhage or abnormal extraaxial fluid collections. Impression: 1. No acute intracranial process. 2. Stable frontal atrophy
--- NOTE | 2018-05-10 17:49 | CT ---
EXAM: CT of the abdomen and pelvis without contrast. HISTORY: Blood in stool. PROCEDURE: Contiguous axial CT images of the abdomen and pelvis without contrast with coronal and sa gittal reformats. FINDINGS: The liver is normal in appearance. The gallbladder is surgically absent. The pancreas, sp claudy, adrenal glands and right kidney are normal in appearance. There is a 6.3 cm fluid density cyst in the upper pole of the left kidney. There are nonobstructive calcifications in the left kidney me asuring up to 3 mm. The abdominal aorta is normal in appearance. The appendix is normal in appearan ce. The colon is partially decompressed which limits the evaluation. There is questionable bowel wa ll thickening in the descending colon, suspicious for colitis. No free fluid or free air in the abdo men or pelvis. The bladder is adequately filled and normal in appearance. The uterus is surgically absent. There are degenerative changes in the spine. Impression: Questionable bowel wall thickening in the descending colon as described, suspicious for c olitis. Nonobstructive left nephrolithiasis as described. Cholecystectomy. Hysterectomy.
== END 2018-05-10 18:33 | disposition home or self-care (01) ==
LOC: ED 13:03
DX: G47.10 Hypersomnia, unspecified (principal); K52.9 Noninfective gastroenteritis and colitis, unspecified; Z79.899 Other long term (current) drug therapy; R42 Dizziness and giddiness; R53.1 Weakness
CPT/HCPCS: 36415; 80053; 80061; 80306; 81001; 82272; 85025; 87086; 99283

== ENCOUNTER 2018-06-25 14:11 | Outpatient (CLI) ==
--- NOTE | 2018-06-25 14:42 | DI ---
EXAM: Three views of the lumbar spine. History: Lower back pain. Findings: No acute fracture or subluxation of the lumbar spine. Moderate disc space narrowing at L4 -L5. Mild disc space narrowing seen at L5-S1. A few calcifications are seen projecting over the lef t renal shadow measuring up to 2 mm. Impression: 1. No acute osseous abnormality of the lumbar spine. 2. Moderate degenerative disc disease at L4-L5 and mild degenerative disc disease at L5-S1. 3. Left nephrolithiasis
== END 2018-06-25 14:12 | disposition home or self-care (01) ==
LOC: RAD 14:11
PROVIDERS: ATTEND Family Medicine
DX: S20.229A Contusion of unspecified back wall of thorax, initial encounter (principal); M54.9 Dorsalgia, unspecified; G89.29 Other chronic pain